=== PATIENT | male | born 1935 | race Hispanic/Latino ===

== ENCOUNTER 2019-11-25 17:07 | Emergency (ER) | payer SELFPAY ==
[2019-11-25 17:47] LABS: Absolute Lymphocytes (CBC) 2.4 K/uL (0.7-4.9); Basophils % 0.9 % (0-1.3); Hematocrit 41.8 % (39.6-49.0); Lymphocytes % 32.5 % (15.3-44.8); MPV 8.9 fL (7.6-11.3); RBC Red Blood Cell Count 4.51 M/uL (4.33-5.43)
--- NOTE | 2019-11-25 17:58 | RAD REPORT ---
EXAM DESCRIPTION: Kristal Single View11/25/2019 5:36 pm CLINICAL HISTORY: Cough COMPARISON: none FINDINGS: The lungs appear clear of acute infiltrate. The heart is normal size IMPRESSION: No acute abnormalities displayed
[2019-11-25 18:07] LABS: ALT/SGPT 71 U/L (12-78); AST/SGOT 44 U/L (15-37); Albumin 3.8 g/dL (3.4-5.0); Alkaline Phosphatase 93 U/L (45-117); BUN Blood Urea Nitrogen 17 mg/dL (7-18); Bicarbonate 28 mmol/L (21-32); Bilirubin Direct 0.1 mg/dL (0-0.2); Bilirubin Total 0.4 mg/dL (0.2-1.0); Glucose Level 107 mg/dL (74-106); Magnesium 2.5 mg/dL (1.8-2.4); NT PRO-BNP 106 pg/mL (<450); Potassium 4.4 mmol/L (3.5-5.1); Sodium Level 142 mmol/L (136-145); Troponin (Emerg Dept Use Only) < 0.02 ng/mL (0.0-0.045)
[2019-11-25] MEDS ORDERED: AMLODIPINE 5 MG TAB ONE (18:32)
[2019-11-25] MEDS ORDERED: lisinopriL 10 MG TAB ONE (19:16)
--- NOTE | 2019-11-25 22:02 | ER ---
Nurse's Notes [facility] Name: Jamie Gomez Age: 83 yrs Sex: Male : 1935 Arrival Date: 11/25/2019 Time: 17:11 Bed 18 Private MD: Diagnosis: Essential (primary) hypertension Presentation: 11/24 17:13 Chief complaint: Patient states: HTN since yesterday after being seen by the dentist. sv Denies any symptoms. Reports he went to the [facility] clinic today and they sent him here. Coronavirus screen: Client denies travel out of the [place] in the last 14 days. At this time, the client does not indicate any symptoms associated with coronavirus-19. Ebola Screen: No symptoms or risks identified at this time. Risk Assessment: Do you want to hurt yourself or someone else? Patient reports no desire to harm self or others. Onset of symptoms was November 24, 2019. 17:13 Method Of Arrival: Ambulatory sv 17:13 Acuity: LACY 4 sv 17:20 Initial Sepsis Screen: Does the patient meet any 2 criteria? No. Patient's initial sv sepsis screen is negative. Does the patient have a suspected source of infection? No. Patient's initial sepsis screen is negative. Historical: - Allergies: 17:14 No Known Allergies; sv - PMHx: 17:14 None; sv - PSHx: 17:14 Cholecystectomy; sv - Immunization history:: Adult Immunizations up to date. - Social history:: Smoking status: Patient denies any tobacco usage or history of. - Family history:: not pertinent. Screenin:25 Abuse screen: Denies threats or abuse. Denies injuries from another. Nutritional ca1 screening: No deficits noted. Tuberculosis screening: No symptoms or risk factors identified. Fall Risk IV access (20 points). Assessment: 17:25 General: Appears in no apparent distress. comfortable, Behavior is calm, cooperative, ca1 appropriate for age. Pain: Denies pain. Neuro: Level of Consciousness is awake, alert, obeys commands, Oriented to person, place, time, situation. Cardiovascular: Heart tones S1 S2 present Capillary refill < 3 seconds Patient's skin is warm and dry. Rhythm is sinus rhythm. Respiratory: Airway is patent Respiratory effort is even, unlabored, Respiratory pattern is regular, symmetrical, Breath sounds are clear bilaterally. GI: Abdomen is round non-distended, Bowel sounds present X 4 quads. Abd is soft and non tender X 4 quads. : No signs and/or symptoms were reported regarding the genitourinary system. EENT: No signs and/or symptoms were reported regarding the EENT system. Derm: Skin is intact, is healthy with good turgor, Skin is pink, warm \T\ dry. Musculoskeletal: Circulation, motion, and sensation intact. Capillary refill < 3 seconds. 18:41 Reassessment: Patient appears in no apparent distress at this time. Patient and/or ca1 family updated on plan of care and expected duration. Pain level reassessed. Patient is alert, oriented x 3, equal unlabored respirations, skin warm/dry/pink. 19:45 Reassessment: Patient appears in no apparent distress at this time. Patient and/or ca1 family updated on plan of care and expected duration. Pain level reassessed. Patient is alert, oriented x 3, equal unlabored respirations, skin warm/dry/pink. 19:46 Reassessment: [phone], Chante, grand daughter. ca1 20:45 Reassessment: Patient appears in no apparent distress at this time. Patient and/or ca1 family updated on plan of care and expected duration. Pain level reassessed. Patient is alert, oriented x 3, equal unlabored respirations, skin warm/dry/pink. 21:11 Reassessment: Patient appears in no apparent distress at this time. Patient is alert, ca1 oriented x 3, equal unlabored respirations, skin warm/dry/pink. Grand daughter at bedside. Vital Signs: 17:20 BP 193 / 95; Pulse 60; Resp 16; Temp 98; Pulse Ox 97% ; Pain 0/10; sv 18:15 BP 193 / 94; Pulse 65; Resp 16 S; Pulse Ox 95% on R/A; ca1 19:02 BP 184 / 95; Pulse 61; Resp 16 S; Pulse Ox 95% on R/A; ca1 19:45 BP 180 / 91; Pulse 60; Resp 15 S; Pulse Ox 96% on R/A; ca1 20:45 BP 172 / 89; Pulse 74; Resp 16 S; Pulse Ox 98% on R/A; ca1 ED Course: 17:11 Patient arrived in ED. ag5 17:12 Arm band placed on. sv 17:13 Triage completed. 17:20 Nick Arizmendi MD is Attending Physician. [facility] 17:23 Bri Ambrose, RN is Primary Nurse. ca1 17:25 Patient has correct armband on for positive identification. Placed in gown. Bed in low ca1 position. Call light in reach. Side rails up X 1. traffic monitor specialist on. Pulse ox on. NIBP on. Warm blanket given. 17:44 Initial lab(s) drawn, by ED staff, sent to lab. Inserted saline lock: 20 gauge in right ca1 antecubital area, using aseptic technique. Blood collected. 19:22 Nick Mc PA is PHCP. cp 20:59 Castillo Garcia MD is Referral Physician. cp 21:12 No provider procedures requiring assistance completed. IV discontinued, intact, ca1 bleeding controlled, No redness/swelling at site. Pressure dressing applied. Administered Medications: 18:23 Drug: Norvasc 5 mg Route: PO; ca1 19:06 Follow up: Response: No adverse reaction; Blood pressure is lowered ca1 19:06 Drug: Lisinopril 10 mg Route: PO; ca1 21:14 Follow up: Response: No adverse reaction; Blood pressure is lowered ca1 Outcome: 20:59 Discharge ordered by MD. cp 21:12 Discharged to home ambulatory, with family. ca1 21:12 Condition: stable 21:12 Discharge instructions given to patient, family, grand daughter Instructed on discharge instructions, follow up and referral plans. medication usage, Demonstrated understanding of instructions, follow-up care, medications, Prescriptions given X 2. 21:14 Patient left the ED. ca1 Signatures: Xiao Allison RN RN Nick Arizmendi MD MD cha Page, Corey, PA PA cp Bri Ambrose RN RN ca1 Cecy Laura ag5 Corrections: (The following items were deleted from the chart) 17:20 17:13 Chief complaint: Patient states: HTN since yesterday after being seen by the dentist. Denies any symptoms
--- NOTE | 2019-11-25 22:03 | EDPHYS ---
Physician Documentation [facility] Name: Jamie Gomez Age: 83 yrs Sex: Male : 1935 Arrival Date: 11/25/2019 Time: 17:11 Bed 18 Private MD: ED Physician Nick Arizmendi HPI: 11/24 18:02 This 83 yrs old Male presents to ER via Ambulatory with complaints of High álvaro Blood Pressure. 18:02 The patient has elevated blood pressure and discovered this at home. Onset: The álvaro symptoms/episode began/occurred just prior to arrival. Modifying factors: The symptoms are aggravated by activity, The symptoms are alleviated by remaining still. Associated signs and symptoms: The patient has no apparent associated signs or symptoms. Severity of symptoms: At its worst the blood pressure was moderate, in the emergency department the blood pressure is unchanged. The patient has not experienced similar symptoms in the past. Historical: - Allergies: 17:14 No Known Allergies; sv - PMHx: 17:14 None; sv - PSHx: 17:14 Cholecystectomy; sv - Immunization history:: Adult Immunizations up to date. - Social history:: Smoking status: Patient denies any tobacco usage or history of. - Family history:: not pertinent. ROS: 18:02 Constitutional: Negative for fever, chills, and weight loss, Eyes: Negative for injury, álvaro pain, redness, and discharge, ENT: Negative for injury, pain, and discharge, Neck: Negative for injury, pain, and swelling, Cardiovascular: Negative for chest pain, palpitations, and edema, Respiratory: Negative for shortness of breath, cough, wheezing, and pleuritic chest pain, Abdomen/GI: Negative for abdominal pain, nausea, vomiting, diarrhea, and constipation, Back: Negative for injury and pain, : Negative for injury, bleeding, discharge, and swelling, MS/Extremity: Negative for injury and deformity, Skin: Negative for injury, rash, and discoloration, Neuro: Negative for headache, weakness, numbness, tingling, and seizure, Psych: Negative for depression, anxiety, suicide ideation, homicidal ideation, and hallucinations, Allergy/Immunology: Negative for hives, rash, and allergies, Endocrine: Negative for neck swelling, polydipsia, polyuria, polyphagia, and marked weight changes, Hematologic/Lymphatic: Negative for swollen nodes, abnormal bleeding, and unusual bruising. Exam: 18:02 Constitutional: This is a well developed, well nourished patient who is awake, alert, álvaro and in no acute distress. Head/Face: Normocephalic, atraumatic. Eyes: Pupils equal round and reactive to light, extra-ocular motions intact. Lids and lashes normal. Conjunctiva and sclera are non-icteric and not injected. Cornea within normal limits. Periorbital areas with no swelling, redness, or edema. ENT: Nares patent. No nasal discharge, no septal abnormalities noted. Tympanic membranes are normal and external auditory canals are clear. Oropharynx with no redness, swelling, or masses, exudates, or evidence of obstruction, uvula midline. Mucous membranes moist. Neck: Trachea midline, no thyromegaly or masses palpated, and no cervical lymphadenopathy. Supple, full range of motion without nuchal rigidity, or vertebral point tenderness. No Meningismus. Chest/axilla: Normal chest wall appearance and motion. Nontender with no deformity. No lesions are appreciated. Cardiovascular: Regular rate and rhythm with a normal S1 and S2. No gallops, murmurs, or rubs. Normal PMI, no JVD. No pulse deficits. Respiratory: Lungs have equal breath sounds bilaterally, clear to auscultation and percussion. No rales, rhonchi or wheezes noted. No increased work of breathing, no retractions or nasal flaring. Abdomen/GI: Soft, non-tender, with normal bowel sounds. No distension or tympany. No guarding or rebound. No evidence of tenderness throughout. Back: No spinal tenderness. No costovertebral tenderness. Full range of motion. Male : Normal genitalia with no discharge or lesions. Skin: Warm, dry with normal turgor. Normal color with no rashes, no lesions, and no evidence of cellulitis. MS/ Extremity: Pulses equal, no cyanosis. Neurovascular intact. Full, normal range of motion. Neuro: Awake and alert, GCS 15, oriented to person, place, time, and situation. Cranial nerves II-XII grossly intact. Motor strength 5/5 in all extremities. Sensory grossly intact. Cerebellar exam normal. Normal gait. Psych: Awake, alert, with orientation to person, place and time. Behavior, mood, and affect are within normal limits. 18:02 Musculoskeletal/extremity: DVT Exam: No signs of deep vein thrombosis. no pain, no swelling, no tenderness, negative Homans' sign noted on exam, no appreciated bluish discoloration, no erythema, no increased warmth. 18:31 ECG was reviewed by the Attending Physician. [facility] Vital Signs: 17:20 BP 193 / 95; Pulse 60; Resp 16; Temp 98; Pulse Ox 97% ; Pain 0/10; sv 18:15 BP 193 / 94; Pulse 65; Resp 16 S; Pulse Ox 95% on R/A; ca1 19:02 BP 184 / 95; Pulse 61; Resp 16 S; Pulse Ox 95% on R/A; ca1 19:45 BP 180 / 91; Pulse 60; Resp 15 S; Pulse Ox 96% on R/A; ca1 20:45 BP 172 / 89; Pulse 74; Resp 16 S; Pulse Ox 98% on R/A; ca1 MDM: 17:22 Patient medically screened. [facility] 18:04 Data reviewed: vital signs, nurses notes, lab test result(s), EKG, radiologic studies, álvaro plain films. 18:04 Differential diagnosis: hypertensive crisis, Malignant HTN. Data interpreted: Cardiac [facility] monitor: rate is 60 beats/min, rhythm is regular, Pulse oximetry: on room air is 97 %. Test interpretation: by ED physician or midlevel provider: ECG, plain radiologic studies. Counseling: I had a detailed discussion with the patient and/or guardian regarding: the historical points, exam findings, and any diagnostic results supporting the discharge/admit diagnosis, lab results, radiology results, the need for outpatient follow up, for definitive care, a consulting it architect. ED course: no complaints, will treat and have him to follow up. 11/24 17:21 Order name: Basic Metabolic Panel [facility] 11/24 17:21 Order name: CBC with Diff [facility] 11/24 17:21 Order name: LFT's [facility] 11/24 17:21 Order name: Magnesium [facility] 11/24 17:21 Order name: NT PRO-BNP [facility] 11/24 17:21 Order name: Troponin (emerg Dept Use Only) [facility] 11/24 17:21 Order name: XRAY Chest (1 view) [facility] 11/24 17:21 Order name: EKG; Complete Time: 17:22 [facility] 11/24 17:21 Order name: Cardiac monitoring; Complete Time: 18:23 [facility] 11/24 17:21 Order name: EKG - Nurse/Tech; Complete Time: 18:23 [facility] 11/24 17:21 Order name: IV Saline Lock; Complete Time: 17:44 [facility] 11/24 19:35 Order name: Urine Dipstick--Ancillary (enter results) 11/24 17:21 Order name: Labs collected and sent; Complete Time: 17:44 [facility] 11/24 17:21 Order name: O2 Per Protocol; Complete Time: 17:44 [facility] 11/24 17:21 Order name: O2 Sat Monitoring; Complete Time: 17:44 [facility] 11/24 17:21 Order name: Urine Dipstick-Ancillary (obtain specimen); Complete Time: 19:28 [facility] EC:31 Rate is 61 beats/min. Rhythm is regular. QRS [place] is Normal. OR interval is normal. QRS álvaro interval is normal. QT interval is normal. No Q waves. T waves are Normal. No ST changes noted. Clinical impression: Normal ECG and No evidence of ischemia. Interpreted by me. Reviewed by me. Administered Medications: 18:23 Drug: Norvasc 5 mg Route: PO; ca1 19:06 Follow up: Response: No adverse reaction; Blood pressure is lowered ca1 19:06 Drug: Lisinopril 10 mg Route: PO; ca1 21:14 Follow up: Response: No adverse reaction; Blood pressure is lowered ca1 Disposition: 11/25/19 20:59 Discharged to Home. Impression: Essential (primary) hypertension. - Condition is Stable. - Discharge Instructions: Hypertension, Hypertension, [id number], Aspirin and Your Heart, Managing Your Hypertension. - Prescriptions for Norvasc 5 mg Oral Tablet - take 1 tablet by ORAL route once daily; 20 tablet. Lisinopril 10 mg Oral Tablet - take 1 tablet by ORAL route once daily; 20 tablet. - Medication Reconciliation Form, Thank You Letter, Antibiotic Education, Prescription Opioid Use form. - Follow up: Private Physician; When: 2 - 3 days; Reason: Recheck today's complaints, Continuance of care, Re-evaluation by your physician. Follow up: Castillo Garcia; When: 2 - 3 days; Reason: Recheck today's complaints, Re-evaluation by your physician. - Problem is new. - Symptoms have improved. Signatures: Dispatcher [employer] Xiao Tam RN RN Nick Sim MD MD cha Page, Corey, PA PA cp Bri Ambrose RN RN ca1 Corrections: (The following items were deleted from the chart) 21:14 20:59 11/25/2019 20:59 Discharged to Home. Impression: Essential (primary) ca1 hypertension. Condition is Stable. Discharge Instructions: Hypertension, Hypertension, [id number], Aspirin and Your Heart, Managing Your Hypertension. Prescriptions for Norvasc 5 mg Oral Tablet - take 1 tablet by ORAL route once daily; 20 tablet, Lisinopril 10 mg Oral Tablet - take 1 tablet by ORAL route once daily; 20 tablet. and Forms are Medication Reconciliation Form, Thank You Letter, Antibiotic Education, Prescription Opioid Use. Follow up: Private Physician; When: 2 - 3 days; Reason: Recheck today's complaints, Continuance of care, Re-evaluation by your physician. Follow up: Castillo Garcia; When: 2 - 3 days; Reason: Recheck today's complaints, Re-evaluation by your physician. Problem is new. Symptoms have improved. cp
[2019-11-25 22:33] LABS: Urine Blood NEGATIVE (NEG); Urine Glucose NEGATIVE (NEG); Urine Protein NEGATIVE (NEG); Urine Specific Gravity 1.015 (1.005-1.030); Urine pH 6.5 (5.0-7.0)
--- NOTE | 2019-11-26 09:00 | EKG ---
Test Date: 2019-11-25 Test Time: 18:17:44 Laborer Driver: SOREN MEASUREMENT RESULTS: Intervals: Rate: 61 MT: 144 QRSD: 78 QT: 388 QTc: 390 [place]: P: 28 MT: 144 QRS: 2 T: 56 INTERPRETIVE STATEMENTS: Normal sinus rhythm Normal ECG No previous ECG available for comparison Electronically Signed On 11-26-19 08:59:58 CDT by Castillo Garcia
[2019-11-27 03:59] VITALS: TEMP 98
[2019-11-27 04:04] VITALS: BP 172/89; O2SAT 98
== END 2019-11-25 21:14 | disposition home or self-care (01) ==
LOC: ER 17:07
DX: I10 Essential (primary) hypertension (principal)
CPT/HCPCS: 36415; 71045; 80048; 80076; 81003; 83735; 83880; 84484; 85025; 93005; 99284